=== PATIENT | male | born 1975 ===

== ENCOUNTER 2022-07-18 15:21 | Outpatient (REF) | payer BC, SELFPAY ==
[2022-07-18 17:42] LABS: Influenza A PCR NEGATIVE (Negative); Influenza B PCR NEGATIVE (Negative); Resp Syncy Virus RNA Qual PCR NEGATIVE (Negative); SARS COV2 PCR INHOUSE POSITIVE (Negative)
== END 2022-07-18 15:22 | disposition home or self-care (01) ==
LOC: HO.LAB 15:21
PROVIDERS: Visit Provider Internal Medicine
DX: Z20.822 Contact with and (suspected) exposure to COVID-19 (principal); R09.89 Other specified symptoms and signs involving the circulatory and respiratory systems
CPT/HCPCS: 0241U

== ENCOUNTER 2024-06-13 10:45 | Outpatient (AMB) | payer BC, SELFPAY ==
--- NOTE | 2024-06-13 10:49 | MHC.OFFWIV ---
Intake Vital Signs 06/13/24 10:56 Height 5 ft 6 in Weight 175 lb BMI 28.2 BP 140/80 H Blood Pressure Location Lt brachial Position Sitting Pulse 72 Pulse Source Pulse Oximeter Pulse Oximetry (%) 98 Oxygen Delivery Method Room Air Intake Visit Reasons: EP Rash Intake Note: pt is here for rash behind knee Patient Tobacco Use Status: Current everyday Tobacco user Accompanied by: Self / Same As Patient Allergies No Known Allergies Allergy (Verified 06/13/24 10:49) Do you need a note to return to daycare/school/sports/work: No HPI HPI Comments History of Present Illness Details The patient is a 49-year-old male presenting with a rash. The rash first appeared on his leg approximately three days prior to the visit, and has since spread to the buttock area. Upon onset, the patient observed the presence of vesicles which were fluid-filled and disrupted spontaneously, leading to an itching sensation and irritation. This was particularly noticeable as the pant leg would stick to the vesicles, and subsequent scratching would lead to the rupture of these vesicles. The patient describes the sensation as a burning rather than itching. Additionally, he describes pain around the affected areas, indicating that the distribution of the rash could be related to dermatomes, which suggests Herpes Zoster (Shingles). There are no signs of systemic symptoms such as fever or lymphadenopathy, and no initial therapies have been utilized to resolve the rash. [facility] Social History Patient Tobacco Use Status: Current everyday Tobacco user Review of Systems Const All systems reviewed & are unremarkable except as noted in HPI and below Physical Exam Vital Signs: Last Vital Signs Pulse 72 06/13/24 10:56 BP 140/80 H 06/13/24 10:56 Pulse Ox 98 06/13/24 10:56 Oxygen Delivery Method Room Air 06/13/24 10:56 BMI result Body Mass Index 28.2 Const General: cooperative, healthy appearing, comfortable, no acute distress and well developed Orientation/consciousness: patient oriented x3 Limitations: no limitations Eyes General: appearance normal, both eyes and all related structures Resp Effort & Inspection: normal respiratory effort and able to speak in complete sentences Skin Other: 3cm round cluster of erythematous slightly raised lesions on posterior left leg and similar size and appearing rash left buttocks in the same dermatome, S2 Neuro General: patient oriented x3 Assessment & Plan Assessment & Plan (1) Shingles rash: Code(s): B02.9 - Zoster without complications Qualifiers: Herpes zoster complications: without complications Qualified Code(s): B02.9 - Zoster without complications Plan: Herpes Zoster: Initiate a 7-day course of antiviral medication, to be taken three times daily, to mitigate the viral activity and alleviate symptoms. Patient advised to keep the affected area covered to prevent transmission. It is recommended to avoid contact with the vesicles should they develop and break open. If pain management becomes necessary, future consideration of nerve pain medication can be addressed. The patient queried about alcohol interaction with the antiviral medication and was advised to verify with a pharmacist for specific contraindications. Further follow-up is only required if symptoms worsen or new vesicles develop. Patient was informed and verbally consented to the use of an ambient scribe for clinic note documentation during this visit. Medications: New valacyclovir 1,000 mg PO Q8H 21 tabs 0RF 7 days Coding Level of Care Code New Pt Level 3 (38937) Diagnoses Herpes zoster without complication B02.9 Herpes zoster complications: without complications
[2024-06-13 10:56] VITALS: BP 140/80; PULSE 72; O2SAT 98; BMI 28.2
== END 2024-06-13 12:48 | disposition home or self-care (01) ==
PROVIDERS: Visit Provider Physician Assistant
DX: B02.9 Zoster without complications (principal)